=== PATIENT | female | born 1960 | race Asian ===

== ENCOUNTER 2016-04-28 00:10 | Emergency (ER) | payer OTHER ==
[2016-04-28] MEDS ORDERED: SODIUM CHLORIDE 0.9% 1,000 ML IV ONE ×2 (02:00→03:46)
== END 2016-04-28 04:52 | disposition home or self-care (01) ==
DX: E86.0 Dehydration (principal); I10 Essential (primary) hypertension; E78.00 Pure hypercholesterolemia, unspecified